=== PATIENT | female | born 1965 | race African-American/Black ===

== ENCOUNTER 2018-08-08 02:47 | Emergency (ER) | payer MEDICARE, MEDICAID ==
--- NOTE | 2018-08-08 10:38 | ULT ---
PRELIMINARY REPORT/[facility]/EMERGENTY AFTER-HOURS PROCEDURE US Pelvis, Transvaginal US Duplex Artery and Vein of the Abdomen, Pelvis, Scrotum and/or Retroperitoneum. Complete Ovarian. EXAM DATE/TIME: 08/08/2018 3:57 AM CLINICAL HISTORY: 53 years old, female; Pain; Other: Pelvic pain with heavy vag bleeding TECHNIQUE: Real-time transvaginal pelvic ultrasound with image documentation. Transvaginal imaging was used for better evaluation of the endometrium and adnexa. Real-time duplex ultrasound scan of the arterial and venous flow with color Doppler flow and spectral waveform analysis. Complete duplex exam focused on the ovaries. COMPARISON: No relevant prior studies available. FINDINGS: Transvaginal pelvic ultrasound was performed. Duplex ultrasound scan with color Doppler flow and spec tral waveform analysis was also performed for evaluation of pelvic and ovarian blood flow and torsion . Uterus/cervix: Endometrium measures 1 cm in thickness. No myometrial mass. Right adnexa: Normal. No mass. Normal ovarian blood flow. No evidence of torsion. Left adnexa: Left ovarian follicles measuring up to 1.6 cm. Otherwise unremarkable. No mass. Normal o varian blood flow. No evidence of torsion. Free fluid: None. Bladder: Empty bladder. Bladder cannot be evaluated with this probe. IMPRESSION: No acute findings. Mildly thickened endometrium; correlate with menstrual cycle. Thank you for allowing us to participate in the care of your patient. 08/08/2018 4:46 AM Central Time ([place] & [place]) FINAL REPORT TRANSVAGINAL PELVIC ULTRASOUND WITH SMART SCALE AND COLOR FLOW AND SPECTRAL DOPPLER IMAGING: Date: 08/08/18 FINDINGS/IMPRESSION: I agree with the preliminary report given by Del. POS: [facility]
== END 2018-08-08 05:48 | disposition home or self-care (01) ==
LOC: ERS 02:47
DX: N92.4 Excessive bleeding in the premenopausal period (principal); J42 Unspecified chronic bronchitis; F17.210 Nicotine dependence, cigarettes, uncomplicated; Z79.891 Long term (current) use of opiate analgesic; Z79.899 Other long term (current) drug therapy
CPT/HCPCS: 76856

== ENCOUNTER 2018-10-05 12:46 | Observation (INO) | payer MEDICARE, MEDICAID ==
[2018-10-05 14:13] VITALS: BMI 26.9
[2018-10-05] MEDS ORDERED: Sodium Chloride 0.9% 2,000 ML IV SCH (14:15)
[2018-10-05] MEDS ORDERED: Ondansetron PF 4 MG/2 ML Vial SLOW IVP SCH (14:15)
--- NOTE | 2018-10-05 15:32 | RAD ---
CHEST TWO VIEWS: 10/05/18 HISTORY: Protracted emesis. COMPARISON: 09/30/18. FINDINGS: Normal cardiac silhouette. The pulmonary vessels and hilum are normal. Costophrenic angles are clear. No masses or consolidation. No pneumothorax. Multiple old rib fractures are noted bilaterally. IMPRESSION: No acute cardiopulmonary process. POS: [facility] [place]
[2018-10-05 15:33] LABS: #Basophils 0.1 thou/uL (0.0-0.2); #Eosinphils 0.1 thou/uL (0.0-0.7); #Lymphocytes 3.7 thou/uL (1.20-3.40); #Monocytes 0.7 thou/uL (0.11-0.59); #Neutrophils 7.7 thou/uL (1.40-6.50); %Basophils 0.5 % (0.0-1.0); %Eosinophils 0.4 % (0.0-10.0); %Lymphocytes 30.1 % (21.0-51.0); %Monocytes 5.6 % (0.0-10.0); %Neutrophils 63.4 % (42.0-75.0); Hemoglobin 18.2 g/dL (12.0-16.0); Mean Corpuscular HGB CONC 33.2 g/dL (32.0-36.0); Mean Corpuscular Hemoglobin 28.2 pg (27.0-31.0); Mean Corpuscular Volume 84.9 fL (78.0-98.0); Mean Platelet Volume 8.8 fL (7.4-10.4); Platelet Count 250 thou/uL (130-400); Red Blood Cell (RBC) Count 6.48 mill/uL (4.20-5.40); White Blood Cell (WBC) Count 12.2 thou/uL (4.8-10.8)
[2018-10-05 15:55] LABS: ALT (SGPT) 11 U/L (8-55); AST (SGOT) 18 U/L (5-34); Albumin 4.2 g/dL (3.5-5.0); Alkaline Phosphatase 90 U/L (40-150); Anion Gap 15 mmol/L (10-20); BUN (Urea Nitrogen) 24 mg/dL (9.8-20.1); Bilirubin, Total 0.8 mg/dL (0.2-1.2); Calc. Creatinine Clearance 62 mL/min (70-130); Calcium 9.9 mg/dL (7.8-10.44); Carbon Dioxide 23 mmol/L (22-29); Chloride 98 mmol/L (98-107); Estimated GFR-MDRD 63; Globulin 3.6 g/dL (2.4-3.5); Glucose 94 mg/dL (70-105); Potassium 3.4 mmol/L (3.5-5.1); Protein, Total 7.8 g/dL (6.0-8.3); Sodium 133 mmol/L (136-145)
[2018-10-05] MEDS: Fentanyl 100 MCG/2 ML VIAL SLOW IVP PRN ×2 (16:12→20:17)
[2018-10-05 17:19] LABS: Bilirubin Small (Negative); Blood, Urine Negative (Negative); Clarity CLOUDY (Clear); Glucose, Urine (Dipstick) Negative (Negative); Leukocyte Trace (Negative); Nitrite Negative (Negative); Protein, Urine (Dipstick) 100 mg/dL (Neg-Trace)
[2018-10-05 17:20] LABS: Bacteria/HPF None Seen HPF (None Seen)
[2018-10-05 17:21] LABS: Pregnancy Test - Urine (BHCG) Negative (Negative); Pregu Control Background? CLEAR/WHITE (CLR/WHITE); Pregu Control Bar Appear? YES (CONTROL BAR)
[2018-10-05 17:27] LABS: Pathc Cast-AUWi Flag 9.01 (0-2.49)
[2018-10-05 17:34] LABS: Hyaline Casts/LPF 7-10 HYALINE CAST LPF (0-3 Hyaline); Other Casts/LPF None Seen LPF (0-3 Hyaline)
[2018-10-05 17:35] LABS: Renal Epithelial 0-3 HPF (0-3); Transitional Epithelial 0-3 HPF (0-3)
--- NOTE | 2018-10-05 18:04 | CT ---
CT ABDOMEN WITH CONTRAST CT PELVIS WITH CONTRAST: 10/05/18 HISTORY: 53-year-old female with protracted emesis. Right sided abdominal pain, nausea, and projectile vomitin g. TECHNIQUE: IV injection of iodinated contrast media: Isovue Oral contrast media: Not administered. FINDINGS: Liver: No focal solid mass. Spleen: No splenomegaly. Pancreas: No mass or surrounding fat stranding. Adrenals: No mass. Kidneys: No hydronephrosis or enhancement abnormalities. Ureters: No dilation. Bladder: No pathology identified. Abdominal aorta: No aneurysm. Small bowel: No dilation. Colon: No adjacent fat stranding. Appendix: No dilation or adjacent fat stranding. Free air: None. Free fluid: None. IMPRESSION: No major pathology identified. judith [] POS: [facility]
[2018-10-05] MEDS: Ondansetron PF 4 MG/2 ML Vial SLOW IVP SCH (18:40)
[2018-10-05] MEDS: Pantoprazole 40 MG VIAL IVP SCH (20:17)
[2018-10-05] MEDS: Sodium Chloride 0.9% 1,000 ML IV SCH ×2 (20:20)
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
[2018-10-06] MEDS: Ondansetron PF 4 MG/2 ML Vial SLOW IVP SCH ×5 (05:21→16:53)
[2018-10-06] MEDS: Sodium Chloride 0.9% 1,000 ML IV SCH (05:21)
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
[2018-10-06 09:15] LABS: #Lymphocytes 3.5 thou/uL (1.20-3.40); #Monocytes 0.8 thou/uL (0.11-0.59); #Neutrophils 6.6 thou/uL (1.40-6.50); %Basophils 0.2 % (0.0-1.0); %Eosinophils 0.4 % (0.0-10.0); %Monocytes 7.3 % (0.0-10.0); %Neutrophils 60.1 % (42.0-75.0); Hemoglobin 13.2 g/dL (12.0-16.0); Mean Corpuscular Hemoglobin 27.1 pg (27.0-31.0); Mean Corpuscular Volume 84.6 fL (78.0-98.0); Mean Platelet Volume 8.8 fL (7.4-10.4); Platelet Count 164 thou/uL (130-400); RBC Distribution Width 12.6 % (11.5-14.5); Red Blood Cell (RBC) Count 4.85 mill/uL (4.20-5.40); White Blood Cell (WBC) Count 10.9 thou/uL (4.8-10.8)
[2018-10-06] MEDS: Pantoprazole 40 MG VIAL IVP SCH ×2 (09:19→21:44)
[2018-10-06 09:34] LABS: Anion Gap 13 mmol/L (10-20); BUN (Urea Nitrogen) 13 mg/dL (9.8-20.1); Calc. Creatinine Clearance 87 mL/min (70-130); Calcium 7.7 mg/dL (7.8-10.44); Carbon Dioxide 18 mmol/L (22-29); Chloride 107 mmol/L (98-107); Estimated GFR-MDRD 88; Glucose 104 mg/dL (70-105); Sodium 135 mmol/L (136-145)
[2018-10-06] MEDS: NS 0.9% w/ 20 MEQ KCL 1,000 ML IV SCH (12:20)
[2018-10-06] MEDS ORDERED: hydrALAZINE 20 MG/ML VIAL ONE (14:25)
[2018-10-06] MEDS ORDERED: Promethazine HCl 25 MG/ML VIAL ONE (14:32)
[2018-10-06] MEDS: Buprenorphine 8mg/Naloxone 2mg per 1 FILM SL SCH (14:43)
[2018-10-06] MEDS ORDERED: Lidocaine 1% PF 5 ML VIAL ONE (16:20)
[2018-10-06] MEDS ORDERED: PROPOFOL 200 MG/20 ML VIAL ONE (16:20)
[2018-10-06] MEDS ORDERED: Promethazine HCl 25 MG in Sodium Chloride 0.9% 50 ML IVPB PRN (17:25)
--- NOTE | 2018-10-06 21:15 | OP ---
DATE OF PROCEDURE: 10/06/2018 PROCEDURE PERFORMED: Esophagogastroduodenoscopy. PREOPERATIVE DIAGNOSIS: This is a 53-year-old female with abdominal pain, nausea and vomiting. She had a negative CAT scan done yesterday. The patient is undergoing EGD. POSTOPERATIVE DIAGNOSIS: Normal exam. DESCRIPTION OF PROCEDURE: The patient was placed on her left lateral position and was given sedation by Anesthesia Department. A [employer]ax video gastroscope under direct vision was passed through the oropharynx, past the GE junction, into the stomach and subsequently into the descending duodenum. The esophageal mucosa appears normal throughout the esophagus. The GE junction, no pathology seen. Retroflexion of the scope in the stomach failed to show any pathology in the fundus or cardia. The gastric body, gastric antrum, incisura angularis, no pathology. The duodenal bulb, descending duodenum, no pathology. The stomach was decompressed and the scope was removed. OVERALL IMPRESSION: Based on description of findings, it is possible that her symptoms very well may be due to either a gastroenteritis type of illness versus medication-induced nausea and vomiting. RECOMMENDATION: 1. Regular diet. 2. Discharge home from GI standpoint. Job ID: [id number]
[2018-10-07] MEDS: Ondansetron PF 4 MG/2 ML Vial SLOW IVP SCH ×2 (00:06→05:29)
[2018-10-07] MEDS: NS 0.9% w/ 20 MEQ KCL 1,000 ML IV SCH (01:28)
[2018-10-07 05:36] VITALS: TEMP 98.7
[2018-10-07 08:11] VITALS: BP 111/72
[2018-10-07] MEDS: Buprenorphine 8mg/Naloxone 2mg per 1 FILM SL SCH (08:33)
[2018-10-07] MEDS: Pantoprazole 40 MG VIAL IVP SCH (08:38)
[2018-10-07] MEDS ORDERED: hydrALAZINE 25 MG TAB PO SCH (15:00)
[2018-10-07] MEDS ORDERED: Carvedilol 6.25 MG TAB PO SCH (17:00)
== END 2018-10-07 13:27 | disposition home or self-care (01) ==
LOC: 2SW 12:46
PROVIDERS: ADMIT Specialist; ATTEND Specialist
PROC: 0DJ08ZZ Inspection of Upper Intestinal Tract, Via Natural or Artificial Opening Endoscopic (ICD-10-PCS; principal; 2018-10-06)
DX: R10.13 Epigastric pain (principal); R11.2 Nausea with vomiting, unspecified; E86.0 Dehydration; G89.29 Other chronic pain; M25.572 Pain in left ankle and joints of left foot; J44.9 Chronic obstructive pulmonary disease, unspecified; I10 Essential (primary) hypertension; K21.9 Gastro-esophageal reflux disease without esophagitis; J32.9 Chronic sinusitis, unspecified; G47.00 Insomnia, unspecified; N39.0 Urinary tract infection, site not specified; F17.210 Nicotine dependence, cigarettes, uncomplicated; Z79.899 Other long term (current) drug therapy; Z88.1 Allergy status to other antibiotic agents; Z88.5 Allergy status to narcotic agent; Z88.7 Allergy status to serum and vaccine; Z88.8 Allergy status to other drugs, medicaments and biological substances; Z98.890 Other specified postprocedural states
CPT/HCPCS: 43235; 71046; 74177; 80048; 80053; 81001; 81025; 85025 ×2; 85730; 87040; 87070; 87086; 87205; 94640 ×4; 96361 ×3; 96365; 96366; 96375; 96376 ×3; G0378; G0379; 36415; C9113; J0360; J1642; J1956; J2001; J2405; J2550; J2704; J3010; J7050; J7620